=== PATIENT | female | born 1985 ===

== ENCOUNTER 2017-07-20 10:50 | Day surgery (SDC) | payer MEDICAID ==
[2017-07-20] MEDS ORDERED: Lidocaine 1% Inj (20ml) ONE (12:14)
[2017-07-20] MEDS ORDERED: Bupivacaine HCl 0.5% PF (10 ml) Inj ONE ×2 (12:14→17:30)
[2017-07-20] MEDS ORDERED: ceFAZolin IV 1 gm in Dextrose 1 GM/50 ML BAG IVPB ONE (12:14)
[2017-07-20] MEDS ORDERED: ceFAZolin 1 gm in NS 1 GM/100 ML BAG IVPB ONE (12:40)
[2017-07-20] MEDS ORDERED: Propofol 10 mg/ml Inj (20 ML) ONE ×2 (12:56→16:54)
[2017-07-20] MEDS ORDERED: Midazolam 2 MG/2 ML VIAL ONE (12:56)
[2017-07-20] MEDS ORDERED: Oxycodone/Acetaminophen 5/325 mg Tab PO PRN ×2 (17:16)
[2017-07-20] MEDS ORDERED: HYDROmorphone 0.5 mg/0.5 ml ISec IVP PRN (17:17)
--- NOTE | 2017-07-20 17:20 | PCM.SURG1 ---
Surgeon's Initial Post Op Note - Surgeon's Notes Surgeon: Dr. Sifuentes Bulb Weeder: Junior, PGY-3; Akhil, PGY-2; Umesh, PGY-2 Type of Anesthesia: General LMA, Block Regional Anesthesia Administered By: Dr. Chase Pre-Operative Diagnosis: Left foot- intra-articular comminuted calcaneal fracture Operative Findings: See dictation Post-Operative Diagnosis: Same as above Operation Performed: Left foot- ORIF of calcaneal fracture with plate and screw fixation Specimen/Specimens Removed: None Estimated Blood Loss: EBL {In ML}: 30 Blood Products Given: N/A Drains Used: No Drains Post-Op Condition: Good Date of Surgery/Procedure: 07/20/17 Time of Surgery/Procedure: 13:00
[2017-07-20 21:13] VITALS: BP 126/76; PULSE 90; RESP 12; TEMP 98.2; O2SAT 100
--- NOTE | 2017-07-21 07:59 | OP ---
PROCEDURE DATE: 07/20/2017 SURGEON: Suzan Sifuentes DPM CASE MANAGEMENT SOCIAL WORKER: Leno Pacheco DPM, PGY-3; Marita Landaverde DPM, PGY-2; Audra Calvo DPM, PGY-2. ANESTHESIOLOGIST: Dr. Orona. TYPE OF ANESTHESIA: General with popliteal block. PREOPERATIVE DIAGNOSIS: Left foot displaced and comminuted intraarticular fracture of the calcaneus. POSTOPERATIVE DIAGNOSIS: Left foot displaced and comminuted intraarticular fracture of the calcaneus. NAME OF PROCEDURE: Left foot open reduction and internal fixation of displaced calcaneal fracture with plate and screw fixation. INDICATIONS: The patient is a 31-year-old female who injured her left foot while cleaning her window and falling from approximately one adrienne. This injury occurred approximately 3 weeks ago. The patient's CT scan revealed an intraarticular comminuted displaced calcaneal fracture that now requires operative treatment. The patient signed the consent after careful explanation of risks, benefits, complications and alternatives for surgical procedure. No guarantees were given nor implied. 2 g of IV Ancef were given to the patient prior to the procedure. The patient's n.p.o. status was confirmed prior to taking the patient to the OR. PREPARATION: The patient was brought to the operating room and placed on the operating room table in supine position. Time-out was performed by identification of the correct patient and the correct procedure. After induction of general anesthesia, a well-padded pneumatic thigh tourniquet was applied to the patient's left thigh. The left lower extremity was then prepped and draped in the usual sterile manner. Esmarch was utilized to exsanguinate the left foot. Pneumatic thigh tourniquet was then inflated to 350 mmHg and the procedure began. PROCEDURE: Prior to making an incision, intraoperative fluoroscopy was used to take lateral and calcaneal axial views to assess the fracture. Anatomical landmarks suggested distal tip of the lateral malleolus, the cuboid, the fourth and fifth metatarsal bases and the inferior extents of the calcaneus were marked. Using a #15 blade, an approximately 5 cm curvilinear incision was created from the inferior tip of the lateral malleolus to the fourth metatarsal base. The incision was deepened to the subcutaneous tissues using sharp and blunt dissection. Care was taken to identify and retract all vital neurovascular structures. All bleeders were cauterized and ligated as necessary. The incision was carried bluntly down to the peroneal tendon. The tendons were now gently retracted and fairly for flexion. The superior extents of the incision revealed EDB muscle fibers. The fibers were then gently resected from the superior aspect of the calcaneus for better visualization. Next, a Taylor elevator was used to free up the lateral calcaneal wall from its surrounding soft tissue attachments for placement of the plate. At this time the primary fracture line was now visualized within the lateral body of the calcaneus and the subtalar joint was also identified. Depression of the calcaneal posterior facet was appreciated. Next a Schanz pin from the Arthrex set was obtained and inserted through the posterior tibia of calcaneus from lateral to medial. The Schanz pin was used as a joystick between the calcaneus actually and also to checking out for its various alignment. Upon manipulation of the other joystick maneuver, it was noted that the varus alignment was unable to reproduce adequately. The decision was made to recreate the original fractures and arrange to mobilize the fracture fragments and manipulate them back into normal anatomical alignment. Using a small osteotome and mallet, the primary fracture line was recreated and this allowed for removal of the lateral calcaneal wall fragment. This piece was sent to the back table to be soaked in saline. Upon removal of this fragment, the depression of the subtalar joint posterior facet was better visualized. A laminar corporate travel counselor was now inserted between the 2 fractured segments at the most distal aspect of the secondary fracture line in order to elevate the posterior facet. Using intraoperative fluoroscopy, gnosticism of the posterior facet of the subtalar joint was appreciated. The laminar corporate travel counselor was now removed. The Schanz pin was now once again used via a joystick maneuver and at this time the calcaneus was successfully brought out to length and out of varus. This was confirmed under live fluoroscopy. This normal anatomical alignment was then held by using a large bone clamp. A second bone clamp was now used to reduce the body of the calcaneus and this was also confirmed under fluoroscopy. Next, the Arthrex Quickset injectable cement was prepared at the back table. The cement was then used to fill the bony defect noted within the body of the calcaneus. Once filled, the lateral wall fragment was now reapplied to the calcaneus and any further defects were then filled with the remaining Quickset. After 10 minutes, it was confirmed that the cement had hardened. An Arthrex percutaneous calcaneal fracture plate was now chosen and applied to the lateral calcaneus. Appropriate alinement and size of the plate was confirmed and any necessary adjustments were made, so that the plate conformed to the patient's anatomy. The plate was then temporarily fixated using two BB taks. Next, the visible holes were drilled and 3.5 mm cortical screws were inserted through the plate. A locking 3.5 mm x 60 mm screw was also inserted through the hole through inferior to the anterior facets. Next, using intraoperative fluoroscopy and Taylor elevator for reference, the two most distal folds of the plate were marked. A small stab incision was placed over the ana to access the screw hole. These two holes were also drilled and two 3.5 mm cortical screws were inserted. At this alignment of the posterior facet of the subtalar joint was assessed under fluoroscopy and it was noted that the posterior facet still appeared to be significantly detached. Thus using a Taylor elevator the posterior facet was elevated through the inserted plate and was held in this elevated position while a K-wire was driven proximal to distal across the posterior facet. The lateral radiographs now revealed excellent gnosticism of the posterior facet of the subtalar joint. The decision was made to vary this inserted K-wire. The posterior tip of the K-wire was cut with the wire drawing machine tender and was clamped against the bone surface using the bone clamp and mallet. Final radiographs were taken and it was noted that the calcaneal height, width and posterior facet of the subtalar joint were all successfully restored back into the normal anatomical alignment. Proper alignment and positioning of the calcaneal plate and screws was also assessed at this time and all appeared to be in normal alignment with no violation of any joint surfaces. Furthermore, the calcaneal axial view showed a significant reduction in the preoperative various alignment of the bone. The bone clamps and Schanz pin were now removed. The surgical site was copiously irrigated with sterile normal saline. Deep tissue closure was performed using 2-0 Vicryl with subcutaneous tissues were then reapproximated and coapted using 4-0 Vicryl. The skin was then reapproximated and coapted using 4-0 Prolene via an interrupted horizontal mattress suture technique. All stab incisions were closed with 4-0 Prolene via simple suture technique. Approximately 10 mL of 0.5% Marcaine plain was now injected to block the saphenous nerve. All incision sites were then dressed with Betadine-soaked Adaptic and the right lower extremity was then dressed with 4 x 4 gauze, ABD pads, Klings and Kerlix. A well-padded posterior splint with an AO modification was now applied to the left lower extremity while maintaining the ankle to 90 degrees of dorsiflexion. The attending Dr. Sifuentes was present throughout the entire case. POSTOPERATIVE CONDITION: The patient tolerated the anesthesia and procedure well with no complication. The patient was reported to the recovery room with vital signs stable and neurovascular status intact to the left foot. The patient was instructed to remain nonweightbearing to the left foot with a wheelchair. The patient is to follow with Dr. Sifuentes at her office on an outpatient basis. Leno Pacheco DPM Suzan Sifuentes DPM MTDBroderick
--- NOTE | 2017-07-21 12:57 | RAD ---
PROCEDURE: Left Foot Radiographs. HISTORY: s/p Calcaneus ORIF COMPARISON: None. FINDINGS: BONES: Status post ORIF calcaneal fracture. Near anatomic alignment achieved. No other fracture identified. Bony detail obscured by fiberglass splint in the frontal and oblique views. JOINTS: Normal. SOFT TISSUES: Normal. OTHER FINDINGS: None. IMPRESSION: ORIF left calcaneal fracture. Near anatomic alignment.
--- NOTE | 2017-07-21 15:54 | RAD ---
PROCEDURE: Intraoperative Fluoroscopy. HISTORY: LEFT CALCANEAL FX FINDINGS: Fluoroscopic assistance was provided. 334.7 seconds fluoroscopy time utilized during this procedure. Radiation dose = 0.79946 mGy. Please refer to the operative report from [facility].
--- NOTE | 2017-07-21 18:26 | RAD ---
PROCEDURE: Radiographs of the left calcaneus/hindfoot. HISTORY: s/p Calcaneal ORIF COMPARISON: None available. TECHNIQUE: Frontal and lateral radiographs of the calcaneus. FINDINGS: PCB status post open reduction internal fixation with exposure compromised by potentially overlying cast which also limits fine bony and soft-tissue detail. A compression plate is appreciated at the lateral calcaneus with multiple compression screws transfixing into the fractured calcaneus and a solitary K-wire seen in this neck of the calcaneus is well with fractures appearing reduced. No calcaneal spur. No subluxation or dislocation including subtalar joint. IMPRESSION: Status post ORIF left calcaneus as discussed above with gas obscuring fine bony and soft-tissue detail.
== END 2017-07-20 19:45 | disposition home or self-care (01) ==
LOC: C.SDS 10:50
PROVIDERS: ATTEND Podiatrist Foot & Ankle Surgery
DX: S92.062A Displaced intraarticular fracture of left calcaneus, initial encounter for closed fracture (principal); W17.89XA Other fall from one level to another, initial encounter
CPT/HCPCS: 28415; 73630; 73650; 76000; J0690; J1170; J2250; J2405; J2704; J3010